=== PATIENT | female | born 1970 | race Caucasian/White ===

== ENCOUNTER 2016-09-20 16:16 | Observation (INO) | payer BC, OTHER ==
--- NOTE | 2016-09-20 16:59 | EDM.PDOC ---
ED HPI GENERAL MEDICAL PROBLEM - General Stated Complaint: POSSIBLE STROKE Time Seen by Provider: 09/20/16 16:48 Source of Information: Reports: Patient - History of Present Illness INITIAL COMMENTS - FREE TEXT/NARRATIVE: HISTORY AND PHYSICAL: History of present illness: Patient is a 46-year-old female who presents to the emergency department for some ongoing atypical symptoms. She states that she wants to make sure she doesn 't have A. fib and that she didn't have a TIA or stroke today. She has a strong family history of early MIs. 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 She has had gestational diabetes and states she should be on metformin but is managing fairly well with diet. She had a stress test last March which was clear. She also had a normal echocardiogram. Today she had some intermittent chest pressure that she states is absolutely not pain and has been coming and going and not related to activity or rest. She also has been waking up in the middle of the night and has thought that maybe she had sleep apnea. She's never had a Holter monitor. This chest discomfort has actually been going on a little bit a single more prominent today. One of her big or concerns is that while she was at the grocery [employer] she is having a conversation with somebody in the middle of it could not speak. The person that she was speaking to said that she was stuttering. She's never had any episode like this. She did not have any other associated symptoms such as headache or vision changes, dizziness nausea or vomiting. Any weakness in any of her extremities. She still feels a little bit of chest pressure but has not had any additional speaking difficulties. Review of systems: As per history of present illness and below otherwise all systems reviewed and negative. Past medical history: As per history of present illness and as reviewed below otherwise noncontributory. Surgical history: As per history of present illness and as reviewed below otherwise noncontributory. Social history: No reported history of drug or alcohol abuse. Family history: As per history of present illness and as reviewed below otherwise noncontributory. Physical exam: HEENT: Atraumatic, normocephalic, pupils reactive, negative for conjunctival pallor or scleral icterus, mucous membranes moist, throat clear, neck supple, nontender, trachea midline. Lungs: Clear to auscultation, breath sounds equal bilaterally, chest nontender. Heart: S1S2, regular, negative for clicks, rubs, or JVD. Abdomen: Soft, nondistended, nontender. Negative for masses or hepatosplenomegaly. Negative for costovertebral tenderness. Pelvis: Stable nontender. Genitourinary: Deferred. Rectal: Deferred. Extremities: Atraumatic, negative for cords or calf pain. Neurovascular unremarkable. Neuro: Awake, alert, oriented. Cranial nerves II through XII unremarkable. Cerebellum unremarkable. Motor and sensory unremarkable throughout. Exam nonfocal. Diagnostics: CT head, CBC, CMP, troponin, chest xray, ekg Impression: #1: TIA #2: Atypical chest pain Plan: I spoke with Dr. Linares about admitting the patient for her TIA like symptoms. I think her symptoms and history are worrisome enough that she should get the full stroke workup. The patient was informed of all her negative findings today but that I thought observation admission to get these tests done. I do not feel the chest pain is unstable or stable angina. She may need a holter monitor for to rule out any palpitations but I do not think this needs to happen immediately. Definitive disposition and diagnosis as appropriate pending reevaluation and review of above. - Related Data Allergies Allergy/AdvReac Type Severity Reaction Status Date / Time No Known Allergies Allergy Verified 09/20/16 16:28 Home Meds: Home Meds atorvaSTATin [Lipitor] 40 mg PO BEDTIME 09/20/16 [History] ED ROS GENERAL - Review of Systems Review Of Systems: ROS reveals no pertinent complaints other than HPI. ED EXAM, GENERAL - Physical Exam Exam: See Below (See history of present illness) Course - Vital Signs Last Recorded V/S: Last Vital Signs Temp 37.1 C 09/20/16 17:50 Pulse 72 09/20/16 18:12 Resp 18 09/20/16 18:12 BP 138/78 09/20/16 18:12 Pulse Ox 97 09/20/16 18:12 - Orders/Labs/Meds Orders: Active Orders 24 hr Category Date Time Status EKG Documentation Completion [RC] STAT Care 09/20/16 17:25 Active Chest 2V [CR] Stat Exams 09/20/16 17:09 Ordered Head wo Cont [CT] Stat Exams 09/20/16 17:09 Ordered Labs: Laboratory Tests 09/20/16 09/20/1617 Range/Units 17:39 17:39 17:39 WBC 7.97 (4.0-11.0) K/uL RBC 4.68 (4.30-5.90) M/uL Hgb 14.6 (12.0-16.0) g/dL Hct 42.8 (36.0-46.0) % MCV 91.5 (80.0-98.0) fL MCH 31.2 (27.0-32.0) pg MCHC 34.1 (31.0-37.0) g/dL RDW Std Deviation 42.6 (28.0-62.0) fl RDW Coeff of Yovani 13 (11.0-15.0) % Plt Count 212 (150-400) K/uL MPV 9.60 (7.40-12.00) fL Neut % (Auto) 61.3 (48.0-80.0) % Lymph % (Auto) 30.9 (16.0-40.0) % [place] % (Auto) 6.3 (0.0-15.0) % Eos % (Auto) 1.0 (0.0-7.0) % Baso % (Auto) 0.5 (0.0-1.5) % Neut # (Auto) 4.9 (1.4-5.7) K/uL Lymph # (Auto) 2.5 H (0.6-2.4) K/uL [place] # (Auto) 0.5 (0.0-0.8) K/uL Eos # (Auto) 0.1 (0.0-0.7) K/uL Baso # (Auto) 0.0 (0.0-0.1) K/uL Nucleated RBC % 0.0 /100WBC Nucleated RBCs # 0 K/uL Sodium 140 (136-146) mmol/L Potassium 4.5 (3.5-5.1) mmol/L Chloride 109 (98-110) mmol/L Carbon Dioxide 21 (21-31) mmol/L BUN 26 H (6.0-23.0) mg/dL Creatinine 0.9 (0.6-1.5) mg/dL Est Cr Clr Drug Dosing 79.63 mL/min Estimated GFR (MDRD) > 60.0 ml/min Glucose 90 (60-110) mg/dL Calcium 9.8 (8.8-10.8) mg/dL Total Bilirubin 0.6 (0.1-1.5) mg/dL AST 18 (5-40) IU/L ALT 26 (8-54) IU/L Alkaline Phosphatase 52 (40-150) Troponin I < 0.10 (0.0-0.29) NG/ML Total Protein 7.8 (6.0-8.0) g/dL Albumin 4.3 (3.5-5.0) g/dL Globulin 3.5 (2.0-3.5) g/dL Albumin/Globulin Ratio 1.2 L (1.3-2.8) Departure - Departure Time of Disposition: 18:59 Disposition: Admitted As Inpatient 67 Condition: good Clinical Impression: Atypical chest pain TIA (transient ischemic attack) Qualifiers: Transient cerebral ischemia type: unspecified Qualified Code(s): G45.9 - Transient cerebral ischemic attack, unspecified Referrals: PCP,None [Primary Care Provider] - - My Orders Last 24 Hours: My Active Orders 09/20/16 17:09 Chest 2V [CR] Stat Head wo Cont [CT] Stat 09/20/16 17:25 EKG Documentation Completion [RC] STAT - Assessment/Plan Last 24 Hours: My Active Orders 09/20/16 17:09 Chest 2V [CR] Stat Head wo Cont [CT] Stat 09/20/16 17:25 EKG Documentation Completion [RC] STAT
[2016-09-20 18:11] LABS: CHLORIDE,CL 109 mmol/L (98-110); SODIUM,NA 140 mmol/L (136-146)
[2016-09-20] MEDS ORDERED: Ondansetron 4 MG/2 ML SDV IVPUSH PRN (20:00)
[2016-09-20] MEDS ORDERED: Acetaminophen 325 MG Tab PO PRN (20:00)
--- NOTE | 2016-09-20 20:07 | PCM.HP ---
H&P History of Present Illness - General Admit Problem/Dx: Admission Diagnosis/Problem Admission Diagnosis/Problem TIA, Transient ischemic attack - History of Present Illness Initial Comments - Free Text/Narative: 46 yo female admitted with pmh of hyperlipidemia who presents to the ED today due to a brief episode of confusion. While at the grocery store at [facility] she stated she was unable to think or speak. The person who she was trying to talk to reported she was stuttering. This lasted for several seconds. She has a history of migraines an gestational diabetes and patient reports it did not feel like she had a migraine or had low blood sugars. She denied any numbess or weakness. She did drive herself home. - Related Data Allergies/Adverse Reactions: Allergies Allergy/AdvReac Type Severity Reaction Status Date / Time No Known Allergies Allergy Verified 09/20/16 16:28 Home Medications: Home Meds atorvaSTATin [Lipitor] 40 mg PO BEDTIME 09/20/16 [History] Past Medical History Cardiovascular History: Reports: High cholesterol Gastrointestinal History: Reports: GERD OBSTETRICS TECH History: Reports: - Past Surgical History GI Surgical History: Reports: Appendectomy, EGD Female Surgical History: Reports: Hysterectomy Social & Family History - Tobacco Use Smoking Status *Q: Never Smoker - Caffeine Use Caffeine Use: Reports: Coffee Caffeine Use Comment: 2 cups daily - Recreational Drug Use Recreational Drug Use: No H&P Review of Systems - Review of Systems: Review Of Systems: See Below General: Reports: no symptoms HEENT: Reports: no symptoms Pulmonary: Reports: No Symptoms Cardiovascular: Reports: no symptoms Gastrointestinal: Reports: No symptoms Genitourinary: Reports: no symptoms Musculoskeletal: Reports: no symptoms Skin: Reports: no symptoms Psychiatric: Reports: no symptoms Neurological: Reports: No Symptoms Hematologic/Lymphatic: Reports: no symptoms Immunologic: Reports: no symptoms Exam - Exam Exam: See Below - Vital Signs Vital Signs: Last Vital Signs Temp 36.5 C 09/20/16 19:06 Pulse 73 09/20/16 19:06 Resp 17 09/20/16 19:06 BP 149/87 H 09/20/16 19:06 Pulse Ox 98 09/20/16 19:06 Weight: 79.6 kg - Exam General: alert, oriented, cooperative HEENT: Hearing intact, Mucosa moist & pink Neck: supple, trachea midline, 2 Lungs: Clear to auscultation, Normal respiratory effort Cardiovascular: regular rate, regular rhythm Abdomen: normal bowel sounds, soft Extremities: 3, normal inspection, 10 Skin: warm, dry, intact Neurological: cranial nerves intact, reflexes equal bilateral, strength equal bilateral, normal gait, normal speech, normal tone, sensation intact. No: focal deficit - Patient Data Result Diagrams: 09/20/16 17:39 09/20/16 17:39 EKG INTERPRETATION Rhythm: NSR Rate (beats/min): 69 P-wave: present QRS: normal ST-T: normal *Q Meaningful Use (ADM) - VTE *Q VTE Criteria *Q: - Stroke *Q Stroke Criteria *Q: - AMI *Q AMI Criteria *Q: Problem List Initiated/Reviewed/Updated: Yes Orders Last 24hrs: Active Orders 24 hr Category Date Time Status Antiembolic Devices [RC] PER UNIT ROUTINE Care 09/20/16 20:01 Ordered Oxygen Therapy [RC] PRN Care 09/20/16 20:00 Ordered Up ad Mary [RC] ASDIRECTED Care 09/20/16 20:00 Ordered VTE/DVT Education [RC] PER UNIT ROUTINE Care 09/20/16 20:00 Ordered Vital Signs [RC] Q4H Care 09/20/16 20:00 Ordered Regular Diet [DIET] Diet 09/20/16 Breakfast Ordered Brain w wo Cont [MR] Routine Exams 09/20/16 19:55 Ordered Carotid Comp [US] Routine Exams 09/20/16 19:55 Ordered GLYCOSYLATED HEMOGLOBIN,HGBA1C [CHEM] Routine Lab 09/20/16 19:56 Ordered LIPID PANEL [CHEM] Routine Lab 09/20/16 19:56 Ordered TROPONIN I,POC [POC] Q6H Lab 09/20/16 23:00 Uncollected TROPONIN I,POC [POC] Q6H Lab 09/21/16 05:00 Uncollected Acetaminophen [Tylenol] Med 09/20/16 20:00 Ordered 650 mg PO Q4H PRN Aspirin Med 09/21/16 19:57 Once 162 mg PO ONETIME ONE Ondansetron [Zofran] Med 09/20/16 20:00 Ordered 4 mg IVPUSH Q4H PRN atorvaSTATin [Lipitor] Med 09/20/16 21:00 Ordered 40 mg PO BEDTIME Sequential Compression Device [OM.PC] Per Unit Routine Oth 03/22/17 20:01 Ordered Resuscitation Status Routine Resus Stat 09/20/16 20:00 Ordered Medication Orders Aspirin (Aspirin) 162 mg PO ONETIME ONE Stop: 09/21/16 19:58 Atorvastatin Calcium (Lipitor) 40 mg PO BEDTIME DAYDAY Assessment/Plan Comment:: 46 yo female admitted for brief period of aphasia will order brain MRI, carotid dopplars.
[2016-09-20] MEDS ORDERED: atorvaSTATin 40 MG Tab PO SCH (21:00)
[2016-09-20] MEDS ORDERED: Aspirin 81 MG Tab.Chew PO ONE (22:51)
--- NOTE | 2016-09-21 10:22 | PCM.PN ---
- General Info Date of Service: 09/21/16 Admission Dx/Problem (Free Text): Admission Diagnosis/Problem Admission Diagnosis/Problem TIA, Transient ischemic attack Subjective Update: Doing well this morning, has no complaints. No further confusion or aphasia. Functional Status: Reports: pain controlled, tolerating diet, ambulating, urinating - Review of Systems General: Reports: No Symptoms HEENT: Reports: no symptoms. Denies: headaches, sinus congestion, sore throat Pulmonary: Reports: no symptoms. Denies: shortness of breath, cough, sputum Cardiovascular: Reports: No Symptoms. Denies: Chest Pain Gastrointestinal: Reports: No symptoms. Denies: Abdominal pain, Nausea, Vomiting Genitourinary: Reports: no symptoms. Denies: dysuria, frequency, burning Musculoskeletal: Reports: no symptoms Skin: Reports: no symptoms Neurological: Reports: No Symptoms Psychiatric: Reports: no symptoms - Patient Data Vitals - most recent: Last Vital Signs Temp 98.2 F 09/21/16 07:00 Pulse 69 09/21/16 07:00 Resp 16 09/21/16 07:00 BP 115/70 09/21/16 07:00 Pulse Ox 97 09/21/16 07:00 Weight - most recent: 77.474 kg I&O - last 24 hours: Intake & Output 09/20/16 09/21/16 09/21/16 22:59 06:59 14:59 Intake Total 420 Output Total 600 Balance -180 Lab Results last 24 hrs: Laboratory Results - last 24 hr 09/20/16 09/21/16 09/21/16 Range/Units 23:36 04:24 05:22 Magnesium 2.0 (1.5-2.3) mEq/L Troponin I < 0.10 < 0.10 (0.0-0.29) NG/ML Med Orders - Current: Current Medications Acetaminophen (Tylenol) 650 mg PO Q4H PRN PRN Reason: Pain (Mild 1-3)/fever Atorvastatin Calcium (Lipitor) 40 mg PO BEDTIME DAYDAY Last Admin: 09/20/16 20:47 Dose: 40 mg Ondansetron HCl (Zofran) 4 mg IVPUSH Q4H PRN PRN Reason: Nausea Discontinued Medications Aspirin (Aspirin) 162 mg PO ONETIME ONE Stop: 09/21/16 19:58 Aspirin (Aspirin) 162 mg PO ONETIME ONE Stop: 09/20/16 22:52 Last Admin: 09/20/16 23:01 Dose: 162 mg - Exam Quality Assessment: DVT prophylaxis General: alert, oriented, cooperative Neck: supple Lungs: Clear to auscultation, Normal respiratory effort Cardiovascular: Regular Rate, Regular Rhythm Abdomen: bowel sounds present, soft, no tenderness, no distension Extremities: no edema, normal pulses Neurological: no new focal deficit Psy/Mental Status: alert, normal affect, normal mood - Problem List & Annotations (1) Aphasia SNOMED Code(s): 51950570 Code(s): R47.01 - APHASIA Status: Acute Current Visit: Yes (2) Hyperlipidemia SNOMED Code(s): 33148378 Code(s): E78.5 - HYPERLIPIDEMIA, UNSPECIFIED Status: Chronic Current Visit: Yes - Problem List Review Problem List Initiated/Reviewed/Updated: Yes - Assessment Assessment:: THis 46 year old female admitted with episode of aphasia and confusion 1. Aphasia: MRI pending as well as carotid. Consider hemiplegic migraine vs siezure vs TIA. Will arrange follow up with Neurologist at [facility] in [place], per patient request. VTE: SCDs Dispo: likely discharge later today after MRI. - Plan Plan:: 46 yo female admitted for brief period of aphasia will order brain MRI, carotid dopplars.
--- NOTE | 2016-09-21 10:22 | US ---
EXAMINATION: Carotid US with pedraza scale and duplex imaging. HISTORY: Brief aphasia FINDINGS: Ultrasound examination of bilateral cervical carotid arteries was performed using pedraza scale and dup kaycee imaging. No significant atheromatous disease noted within the carotid arteries. Antegrade flow is noted within the vertebrals.. These are the peak velocities in cm per second (systole), right and left respectively, by a comma: CCA (common carotid artery) - 103, 144 ICA (internal carotid artery) - 87, 86 ECA (External carotid artery) - 64, 116 ICA/CCA systolic ratio Right - 1.3 Left - 0.9 IMPRESSION: No significant atheromatous plaque identified or elevated velocities noted within the internal carot id arteries.
--- NOTE | 2016-09-21 13:27 | CT ---
EXAM DATE: 09/20/16 PATIENT'S AGE: 46 Patient: CARINE SMITH Facility: [place], [place] Site . Site : 1970 Study: CT Head [id number]/22/2017 5:31:47 PM Ordering Physician: Doctor Cook Final Report: INDICATION: episode of speaking difficulty CT HEAD WITHOUT CONTRAST TECHNIQUE: Multiple axial CT images were performed through the head without intravenous contrast administration. COMPARISON: No previous studies are currently available for comparison. FINDINGS: No acute intracranial hemorrhage is identified. No extra-axial collections are evident and there is no mass effect or midline shift. Ventricles are normal in size and configuration. Brain parenchyma appears normal with unremarkable pedraza-white differentiation. Osseous structures are within normal limits and no fractures are seen. Included portions of the paranasal sinuses and mastoid air cells are normally aerated. IMPRESSION: Normal non-contrast head CT. ANICETO PRICE MD [employer] Dictated by: Sandip Price MD @ 09/20/2016 17:36:40 (Electronic Signature) Report Signed by Proxy and Original Signed Document filed in the Medical Record. [facility]
--- NOTE | 2016-09-21 13:28 | CR ---
EXAM DATE: 09/20/16 PATIENT'S AGE: 46 Patient: CARINE SMITH Facility: [place], [place] Site . Site : 1970 Study: XRay Chest [id number]/22/[id number] 5:32:12 PM Ordering Physician: Doctor Cook Final Report: INDICATION: aphasia, chest pressure, dizziness CHEST, PA AND LATERAL Upright PA and lateral radiographs of the chest were performed. Comparison: No previous studies are currently available for comparison. The lungs appear clear and there are no pleural effusions. Heart size and pulmonary vasculature appear normal. Visualized bones show no significant findings. IMPRESSION: No acute intrathoracic abnormality identified. ANICETO PRICE MD [employer] Dictated by: Sandip Price MD @ 09/20/2016 17:34:25 (Electronic Signature) Report Signed by Proxy and Original Signed Document filed in the Medical Record. [facility]
[2016-09-21] MEDS ORDERED: Gadobutrol 10 mMOL/10 ML SDV IVPUSH STA (13:48)
--- NOTE | 2016-09-21 15:24 | MR ---
EXAMINATION: MRI of the brain with and without contrast. TECHNIQUE: Multiplanar and multisequence imaging of the brain without and following the administrati on of 8 mL of Gadavist. HISTORY: Breech aphasia FINDINGS: Cerebral hemispheres and the deep nuclei are without hemorrhage, mass, edema, enhancement or atrophy . There is a single nonspecific right frontal parietal subcortical white matter FLAIR intensities n oted. No evidence for diffusion restriction or an infarct. No extraaxial collections or hemorrhage. The ventricular system is of normal size and configuration without hydrocephalus. The brainstem and cerebellum are without hemorrhage, mass, edema, gliosis, e nhancement or atrophy. Carotid basilar artery flow voids are intact. The otomastoid airspaces are clear. No internal yanick tory canal or cerebellopontine angle masses or enhancement. The paranasal sinuses are clear. Globes, optic nerves, orbital apices, optic chiasm, optic tracts, and visual cortices are unremarka ble. The pituitary and sella turcica are unremarkable. No meningeal enhancement. No evidence of meningitis. The craniocervical junction is unremarkable. No siderosis or evidence of vascular malformation. The calvarium is intact. IMPRESSION: 1. Single tiny nonspecific right cerebral subcortical white matter FLAIR intensities without evidenc e of diffusion restriction. 2. Otherwise no acute intracranial findings.
--- NOTE | 2016-09-21 15:44 | PCM.DCSUM1 ---
Discharge Summary - Hospital Course Brief History: This 46 year old female with pmh of hyperlipidemia who presents to the ED on 09/20/2016 due to a brief episode of confusion. While at the grocery store in [place] she stated she was unable to think or speak. The person who she was trying to talk to reported she was stuttering. This lasted for several seconds, she was alert through the whole thing, but didn't know she was stuttering. She has a history of migraines and gestational diabetes and patient reports it did not feel like she had a migraine or had low blood sugars. She denied any numbess or weakness. She did drive herself home. She does report being under a lot of stress recently. In the ED, all labwork WNL, troponin negative. Head CT negative along with CXR. EKG SR 60s with no ectopy. She was admitted for observation with suspected TIA with aphasia. - Discharge Data Discharge Date: 09/21/16 Discharge Disposition: Home, Self-Care 01 Condition: Good - Discharge Diagnosis/Problem(s) (1) Aphasia SNOMED Code(s): 30918705 ICD Code: R47.01 - APHASIA Status: Acute Current Visit: Yes (2) Hyperlipidemia SNOMED Code(s): 08286159 ICD Code: E78.5 - HYPERLIPIDEMIA, UNSPECIFIED Status: Chronic Current Visit: Yes - Patient Instructions Diet: Heart Healthy Diet Activity: As Tolerated Driving: May Drive Today Showering/Bathing: May Shower Notify Provider of: Fever, Increased Pain, Swelling and Redness, Drainage, Nausea and/or Vomiting - Discharge Plan Home Medications: Home Meds atorvaSTATin [Lipitor] 40 mg PO BEDTIME 09/20/16 [History] Patient Handouts: Transient Ischemic Attack, [id number] - Discharge Summary/Plan Comment DC Time >30 min.: No Discharge Summary/Plan Comment: Discharge diagnoses: Aphasia: lasting seconds- resolved Dyslipidemia Josette was admitted for observation. Completely asymptomatic during stay. Troponins returned all negative. Carotid doppler was completed with was normal, no atheromatous plaque identified or elevated velocities within the internal carotid arteries. MRI of brain completed which revealed a "single non specific right frontal parietal subcortical white matter FLAIR, without evidence for diffusion restriction or an infarct." Moment of aphasia potentially could be linked to history of migraines and elevated stress at this time. No further evidence of TIA noted. Would recommend follow up with Neurologist regarding potential for hemiplegic migraines. She requests to follow up at [facility] in [place]. I will discharge her home today, stable. VSS no further episodes of aphasia or confusion. LDL 102, HDL 48, Triglycerides 97. She is encouraged to follow up in clinic or ED in concerns should arise. Follow up with PCP in 1 week. - General Info Date of Service: 09/21/16 Admission Dx/Problem (Free Text: Admission Diagnosis/Problem Admission Diagnosis/Problem TIA, Transient ischemic attack Subjective Update: Continues to do well this afternoon, has no complaints. No further confusion or aphasia. Eager for discharge home. Functional Status: Reports: pain controlled, tolerating diet, ambulating, urinating - Review of Systems General: Reports: No Symptoms HEENT: Reports: no symptoms. Denies: visual changes Pulmonary: Reports: no symptoms. Denies: shortness of breath, cough, sputum Cardiovascular: Reports: No Symptoms. Denies: Chest Pain Gastrointestinal: Reports: No symptoms Genitourinary: Reports: no symptoms Musculoskeletal: Reports: no symptoms. Denies: neck pain Skin: Reports: no symptoms Neurological: Reports: No Symptoms. Denies: Confusion, Dizziness, Headache Psychiatric: Reports: no symptoms - Patient Data Vitals - Most Recent: Last Vital Signs Temp 98.7 F 09/21/16 11:00 Pulse 67 09/21/16 11:00 Resp 16 09/21/16 11:00 BP 121/71 09/21/16 11:00 Pulse Ox 99 09/21/16 11:00 Weight - Most Recent: 79.6 kg I&O - Last 24 hours: Intake & Output 09/21/16 09/21/16 09/21/16 06:59 14:59 22:59 Intake Total 420 Output Total 600 Balance -180 Lab Results - Last 24 hrs: Laboratory Results - last 24 hr 09/20/16 09/21/16 09/21/16 Range/Units 23:36 04:24 05:22 Magnesium 2.0 (1.5-2.3) mEq/L Troponin I < 0.10 < 0.10 (0.0-0.29) NG/ML Med Orders - Current: Current Medications Acetaminophen (Tylenol) 650 mg PO Q4H PRN PRN Reason: Pain (Mild 1-3)/fever Atorvastatin Calcium (Lipitor) 40 mg PO BEDTIME DAYDAY Last Admin: 09/20/16 20:47 Dose: 40 mg Ondansetron HCl (Zofran) 4 mg IVPUSH Q4H PRN PRN Reason: Nausea Discontinued Medications Aspirin (Aspirin) 162 mg PO ONETIME ONE Stop: 09/21/16 19:58 Aspirin (Aspirin) 162 mg PO ONETIME ONE Stop: 09/20/16 22:52 Last Admin: 09/20/16 23:01 Dose: 162 mg Gadobutrol (Gadavist) 10 ml IVPUSH ONETIME STA Stop: 09/21/16 13:49 Last Admin: 09/21/16 13:51 Dose: 8 ml - Exam General: Reports: alert, oriented HEENT: Reports: Pupils equal, Pupils reactive, EOMI, Mucous membr. moist/pink Lungs: Reports: Clear to auscultation Cardiovascular: Reports: Regular Rate, Regular Rhythm Abdomen: Reports: bowel sounds present, soft, no tenderness, no distension Neurological: Reports: no new focal deficit Psy/Mental Status: Reports: alert, normal affect, normal mood *Q Meaningful Use (DIS) - VTE *Q VTE Criteria *Q: - Stroke *Q Stroke Criteria *Q: - AMI *Q AMI Criteria *Q:
[2016-09-21 16:26] VITALS: BP 123/75
[2016-09-21] MEDS ORDERED: Aspirin 81 MG Tab.Chew PO ONE (19:57)
== END 2016-09-21 16:20 | disposition home or self-care (01) ==
LOC: MW.ED 16:16 → MW.MS 19:00
PROVIDERS: ADMIT Internal Medicine; ATTEND Internal Medicine
DX: R47.01 Aphasia (principal); E78.5 Hyperlipidemia, unspecified; R07.89 Other chest pain; E78.00 Pure hypercholesterolemia, unspecified; K21.9 Gastro-esophageal reflux disease without esophagitis; Z79.899 Other long term (current) drug therapy
CPT/HCPCS: 36415; 70450; 70553; 71020; 80053; 80061; 82607; 82746; 83036; 83735; 84484; 85025; 93005; 93880; 99285; A9270; A9585; G0378